=== PATIENT | female | born 1980 | race Caucasian/White ===

== ENCOUNTER 2021-04-18 23:22 | Emergency (ER) | payer SELFPAY ==
[~2021-04-18] VITALS: Ht 170.2 cm; Wt 81.8 kg
[2021-04-18 23:26] VITALS: BP 130/90
== END 2021-04-18 23:57 | disposition left against medical advice (07) ==
LOC: EMS 23:22
DX: F10.239 Alcohol dependence with withdrawal, unspecified (principal); Y90.9 Presence of alcohol in blood, level not specified; Z53.21 Procedure and treatment not carried out due to patient leaving prior to being seen by health care provider